=== PATIENT | male | born 1980 | race Caucasian/White ===

== ENCOUNTER 2021-01-24 18:59 | Emergency (ER) | payer MEDICAID ==
[~2021-01-24] VITALS: Ht 170.2 cm; Wt 72.6 kg
[2021-01-24 19:10] VITALS: BP_SYST 140
[2021-01-24] MEDS ORDERED: AMOX500C2 PO (19:23)
== END 2021-01-24 19:25 | disposition home or self-care (01) ==
LOC: SED 18:59
DX: J02.9 Acute pharyngitis, unspecified (principal)
CPT/HCPCS: 99283